=== PATIENT | male | born 1940 | race Caucasian/White ===

== ENCOUNTER 2016-11-04 09:10 | Outpatient (CLI) | payer MEDICARE, OTHER | END 2016-11-04 09:11 | disposition home or self-care (01) | DX: E11.65 Type 2 diabetes mellitus with hyperglycemia (principal); N40.1 Benign prostatic hyperplasia with lower urinary tract symptoms; N13.8 Other obstructive and reflux uropathy ==

== ENCOUNTER 2017-01-11 09:41 | Outpatient (CLI) | payer MEDICARE, OTHER | END 2017-01-11 09:42 | disposition home or self-care (01) | DX: E11.65 Type 2 diabetes mellitus with hyperglycemia (principal) ==

== ENCOUNTER 2017-04-02 07:09 | Outpatient (CLI) | payer MEDICARE, OTHER ==
[2017-04-02 13:20] LABS: BILIRUBIN,TOTAL 0.7 mg/dL (0.2-1.0); BUN - BLOOD UREA NITROGEN 23 mg/dL (6-20); CALCIUM 9.4 mg/dL (8.5-10.3); CARBON DIOXIDE - CO2 24 mmol/L (21-32); CHLORIDE 103 mmol/L (101-111); CREATININE 1.1 mg/dL (0.6-1.2); GFR - MDRD 65 (>89); GLUCOSE 175 mg/dL (70-100); POTASSIUM 4.2 mmol/L (3.5-5.0); SODIUM 136 mmol/L (135-145); TOTAL PROTEIN 7.6 g/dL (6.7-8.2)
[2017-04-02 13:21] LABS: ALBUMIN/GLOBULIN RATIO 1.1 (1.0-2.2); CHOL/HDL RATIO 4.1 (<5.0); CHOLESTEROL 120 mg/dL; HDL CHOLESTEROL 29 mg/dL; LDL/HDL RATIO 1.6 (<3.6); TRIGLYCERIDES 231 mg/dL; VLDL CHOLESTEROL 46 mg/dL
[2017-04-02 13:32] LABS: HEMOGLOBIN A1C 1.12 g/dL
== END 2017-04-02 07:10 | disposition home or self-care (01) ==
LOC: LAB.WCP 07:09
PROVIDERS: ATTEND Family Medicine
DX: E11.65 Type 2 diabetes mellitus with hyperglycemia (principal)
CPT/HCPCS: 36415; 80053; 80061; 82043; 83036

== ENCOUNTER 2017-07-08 08:00 | Outpatient (CLI) | payer MEDICARE, OTHER ==
[2017-07-08 13:36] LABS: HEMOGLOBIN A1C 1.17 g/dL
[2017-07-08 13:50] LABS: CALCIUM 9.6 mg/dL (8.5-10.3); CREATININE 1.1 mg/dL (0.6-1.2); POTASSIUM 4.7 mmol/L (3.5-5.0); TOTAL PROTEIN 7.8 g/dL (6.7-8.2)
== END 2017-07-08 08:01 | disposition home or self-care (01) ==
LOC: LAB.WCP 08:00
PROVIDERS: ATTEND Family Medicine
DX: I10 Essential (primary) hypertension (principal); E11.65 Type 2 diabetes mellitus with hyperglycemia
CPT/HCPCS: 36415; 80053; 83036

== ENCOUNTER 2017-10-21 07:48 | Outpatient (CLI) | payer MEDICARE, OTHER ==
--- NOTE | 2017-10-21 12:25 | MRI Report ---
EXAM: MRI LUMBAR SPINE WITHOUT CONTRAST EXAM DATE: 10/21/2017 08:32 AM. CLINICAL HISTORY: 76-year-old man with low back pain and right-sided lumbar radiculopathy. COMPARISON: 01/03/2010. TECHNIQUE: Multiplanar, multisequence T1-weighted and fluid-sensitive sequences of the lumbar spine f rom T12 to S1 without contrast. Other: None. FINDINGS: Spinal Cord: The conus terminates at L1-L2. Cauda equina nerve roots are normal in appearance. Alignment: No significant spondylolisthesis. There is minimal convex left scoliosis centered at L4-L5 , similar to the 2010 exam. Bone Marrow: Five [id number] lumbar vertebral bodies are present. No gross fractures or bone les ions. Trace degenerative endplate edema is present at L4-L5. Disk Levels/Facets: T12-L1: Unremarkable. L1-L2: Unremarkable. L2-L3: There is disk desiccation without significant height loss. Small broad-based disk bulge result s in mild narrowing and central canal, progressed. Facet hypertrophy and disk in the subarticular spa danny result in mild narrowing of the neuroforamina bilaterally, not significantly changed. L3-L4: Disk height and signal are relatively preserved. Mild facet hypertrophy and prominent dorsal e pidural fat results in minimal narrowing of the central canal, not significantly changed. Facet hyper trophy results in mild to moderate narrowing of the neural foramina bilaterally, stable or slightly p rogressed on the left. L4-L5: There is mild disk height loss. Mild edema is present within the disk space. Right paracentral disk extrusion is present, decreased in size compared to 2010 exam, but there is effacement of the r ight lateral recess and likely compression of the passing right L5 nerve roots. The extrusion results in mild narrowing of the central canal overall. Disk osteophyte complex in the subarticular spaces a nd facet hypertrophy results in moderate narrowing of the right neural foramen and mild/moderate narr owing on the left, progressed on the right. L5-S1: There is mild disk desiccation and height loss. Small broad-based disk bulge is present withou t significant narrowing of the central canal. Disk may contact the passing S1 nerve roots, left-sided greater than right, but no definite compression. Facet hypertrophy and disk in the subarticular spac es result in mild to moderate narrowing of the neural foramina bilaterally, unchanged. Musculature: Normal. No edema or fatty atrophy. Other: The partially visualized retroperitoneum is unremarkable. IMPRESSION: 1. Degenerative disk changes, worst at L4-L5 where there is minimal bony endplate edema. 2. Degenerative changes result in the following: - L2-L3: Mild narrowing of the canal, progressed compared to the 01/03/2010 exam. Mild narrowing of t he lateral foramina bilaterally, unchanged. - L3-L4: Mild to moderate narrowing of the neural foramina bilaterally, stable or slightly progressed on the left. - L4-L5: Right paracentral disk extrusion, smaller than on the 2010 exam. This effaces the right late ral recess, likely compressing the passing right L5 nerve root. Mild narrowing of the central canal o verall. Moderate narrowing of the right neural foramen and mild to moderate narrowing on the left, pr ogressed on the right. - L5-S1: Mild to moderate narrowing of the neural foramina bilaterally, unchanged. Comment: The following findings are so common in adults without low back pain that while we report th eir presence, they must be interpreted with caution and in the context of the clinical situation. (Re rick Joy et al, Spine 2001) Prevalence of findings in patients without low back pain: Disk degeneration (any evidence): 92% Disk desiccation/T2 signal loss: 83% Disk height loss: 56% Disk bulge: 64% Disk protrusion: 32% Annular tear/high intensity zone: 38% [facility] Referring Provider Line: [phone] SITE ID: [id number]
== END 2017-10-21 07:49 | disposition home or self-care (01) ==
LOC: DI 07:48
PROVIDERS: ATTEND Family Medicine
DX: M51.26 Other intervertebral disc displacement, lumbar region (principal); M51.36 Other intervertebral disc degeneration, lumbar region; M47.896 Other spondylosis, lumbar region; M51.37 Other intervertebral disc degeneration, lumbosacral region; M47.897 Other spondylosis, lumbosacral region
CPT/HCPCS: 72148

== ENCOUNTER 2017-12-08 09:22 | Outpatient (CLI) | payer MEDICARE, OTHER | END 2017-12-08 09:23 | disposition home or self-care (01) | LOC: SC 09:22 | PROVIDERS: ATTEND Nurse Practitioner Family | DX: G47.33 Obstructive sleep apnea (adult) (pediatric) (principal) | CPT/HCPCS: 99214; G0463; 99212 ==

== ENCOUNTER 2018-04-25 08:21 | Outpatient (CLI) | payer MEDICARE, OTHER | END 2018-04-25 08:22 | disposition home or self-care (01) | LOC: DI 08:21 | PROVIDERS: ATTEND Family Medicine | DX: I35.0 Nonrheumatic aortic (valve) stenosis (principal); I51.9 Heart disease, unspecified; I27.20 Pulmonary hypertension, unspecified | CPT/HCPCS: 93306 ==

== ENCOUNTER 2018-04-28 08:19 | Outpatient (CLI) | payer MEDICARE, OTHER ==
[2018-04-28 13:20] LABS: HB2 TOTAL 14.8 g/dL; HEMOGLOBIN A1C 1.04 g/dL; HEMOGLOBIN A1C % 8.6 % (4.6-6.2)
[2018-04-28 13:24] LABS: ALBUMIN 3.8 g/dL (3.2-5.5); ALKALINE PHOSPHATASE 74 IU/L (42-121); ALT ALANINE AMINOTRANSFERASE 37 IU/L (10-60); AST ASPARTATE AMINOTRANSFERASE 35 IU/L (10-42); BILIRUBIN,TOTAL 0.6 mg/dL (0.2-1.0); BUN - BLOOD UREA NITROGEN 24 mg/dL (6-20); CALCIUM 9.1 mg/dL (8.5-10.3); CARBON DIOXIDE - CO2 22 mmol/L (21-32); CHLORIDE 104 mmol/L (101-111); CHOL/HDL RATIO 3.7 (<5.0); CHOLESTEROL 110 mg/dL; CREATININE 1.2 mg/dL (0.6-1.2); GFR - MDRD 59 (>89); GLUCOSE 206 mg/dL (70-100); HDL CHOLESTEROL 30 mg/dL; LDL CHOLESTEROL,CALCULATED 38 mg/dL; LDL/HDL RATIO 1.3 (<3.6); SODIUM 134 mmol/L (135-145); TOTAL PROTEIN 7.6 g/dL (6.7-8.2); VLDL CHOLESTEROL 42 mg/dL
== END 2018-04-28 08:20 ==
LOC: LAB.WCP 08:19
PROVIDERS: ATTEND Family Medicine
DX: E11.9 Type 2 diabetes mellitus without complications (principal)
CPT/HCPCS: 36415; 80053; 80061; 83036; 83721

== ENCOUNTER 2018-06-16 07:14 | Outpatient (CLI) | payer MEDICARE, OTHER | END 2018-06-16 07:15 | disposition home or self-care (01) | LOC: RT 07:14 | PROVIDERS: ATTEND Internal Medicine Cardiovascular Disease | DX: I35.0 Nonrheumatic aortic (valve) stenosis (principal) | CPT/HCPCS: 93005 ==

== ENCOUNTER 2019-02-14 08:00 | Outpatient (CLI) | payer MEDICARE, OTHER | END 2019-02-14 23:59 | disposition home or self-care (01) | LOC: LAB.WCP 08:00 | PROVIDERS: ATTEND Nurse Practitioner | DX: E11.65 Type 2 diabetes mellitus with hyperglycemia (principal); Z79.4 Long term (current) use of insulin | CPT/HCPCS: 36415; 80048 ==

== ENCOUNTER 2019-05-09 08:00 | Outpatient (CLI) | payer MEDICARE, OTHER ==
[2019-05-09 18:58] LABS: BASOPHILS # (AUTO) 0.1 10^3/uL (0.0-0.1); BASOPHILS % (AUTO) 1.3 %; EOSINOPHILS # (AUTO) 0.2 10^3/uL (0.0-0.7); EOSINOPHILS % (AUTO) 2.6 %; HGB - HEMOGLOBIN 13.6 g/dL (14.0-18.0); LYMPHOCYTES # (AUTO) 2.3 10^3/uL (1.5-3.5); LYMPHOCYTES % (AUTO) 32.5 %; MEAN CORPUSCULAR HEMOGLOBIN 27.5 pg (27.0-31.0); MEAN CORPUSCULAR HGB CONC 30.9 g/dL (32.0-36.0); MEAN CORPUSCULAR VOLUME 88.9 fL (80.0-94.0); MEAN PLATELET VOLUME 11.1 fL (7.4-11.4); MONOCYTES # (AUTO) 0.8 10^3/uL (0.0-1.0); MONOCYTES % (AUTO) 11.3 %; NEUTROPHILS # (AUTO) 3.7 10^3/uL (1.5-6.6); NEUTROPHILS % (AUTO) 51.7 %; PLT - PLATELET COUNT 188 10^3/uL (130-450); RED BLOOD COUNT 4.95 10^6/uL (4.70-6.10); RED CELL DISTRIBUTION WIDTH 13.9 % (12.0-15.0); WHITE BLOOD COUNT 7.2 x10^3/uL (4.8-10.8)
[2019-05-09 19:01] LABS: INR 1.1 (0.8-1.2); PT - PROTHROMBIN TIME 11.9 secs (9.9-12.6)
[2019-05-09 19:20] LABS: BILIRUBIN,TOTAL 0.8 mg/dL (0.2-1.0); CALCIUM 9.4 mg/dL (8.5-10.3); CREATININE 1.3 mg/dL (0.6-1.2)
== END 2019-05-09 08:01 | disposition home or self-care (01) ==
LOC: LAB.WCP 08:00
PROVIDERS: ATTEND Family Medicine
DX: D69.2 Other nonthrombocytopenic purpura (principal)
CPT/HCPCS: 36415; 80053; 85025; 85610

== ENCOUNTER 2019-05-12 07:31 | Outpatient (CLI) | payer MEDICARE, OTHER | END 2019-05-12 07:32 | disposition home or self-care (01) | LOC: DI 07:31 | PROVIDERS: ATTEND Family Medicine | DX: I35.0 Nonrheumatic aortic (valve) stenosis (principal); I35.1 Nonrheumatic aortic (valve) insufficiency | CPT/HCPCS: 93306 ==

== ENCOUNTER 2019-06-08 08:43 | Outpatient (CLI) | payer MEDICARE, OTHER ==
[2019-06-08 09:41] VITALS: BP 128/70
--- NOTE | 2019-06-08 09:41 | SLEEP CARE CONSULTATION ---
Information from patient questionnaire entered by Ruth King. I have reviewed and concur with the information entered by Ruth King. This document represents the service I personally performed and the decisions made by me, Sindy Morejon, RN, MSN, GEM EXPERT. History of Present Illness Previous diagnosis: Moderate, Obstructive Sleep Apnea-Hypopnea Syndrome AHI: 25.2 Reason for CPAP/BiPAP follow up: annual Equipment type: CPAP Equipment obtained from: [facility] Mask style: Nasal Mask brand: Respironics Backup mask available: Yes Last cushion change: a couple of months HPI additional information: Back pain resolved with chiropractic treatment. CPAP Compliance Data - Data Reviewed with Patient Average duration of nightly device use: 6.5 Compliance rate %: 95.6 (180 days) Current pressure setting (cmH2O): 8-13 Humidity settin Heated hose settin Average residual AHI: 2.5 Average large leak: 2 secs Subjective Patient concerns: denies: aerophagia, mask discomfort, air blowing in eyes, mask leak noise, condensation in mask/hose, nasal congestion, dry mouth, nose, throat, epistaxis Observed to snore while using device: No On therapy, patient: reports: sleeping better, awakening more refreshed, being more awake and alert during the day, more rested overall. denies: drowsiness while driving Initial [place] Sleepiness Scale score: 9 Current [place] Sleepiness Scale score: 7 Allergies and Home Medications Allergy and home medication list: Losartan Potassium 100mg tablet, 1 po bid Multivitamins 1 po qd Felodipine ER 24h 10mg tablet, 1 po qd Zocor 20mg tablet, 1 po qhs Gemfibrozil 600mg tablet, 1 po bid Lantus Solostar pen injector 100unit/ml subcutaneous solution, inject 55 units of insulin qd Flomax 0.4mg capsule, 1 po qpm Novalog Flexpen pen injector 100unit/ml subcutaneous solution (insulin aspart) 25 unitls before breakfast, 26 units to lunch, 27 units before dinner Fluticasone Propionate 50mcg/act nasal suspension, 1 spray each nostril bid Ibuprofen 600mg tablet, 1 po ac tid PRN pain Tizanidine HCL 2mg tablet, 1-2 po qhs Victoza pen injector ( 18mg/3ml subcutaneous solution Liraglutide), inject 1.8 mg qd * Just had consultation with publications writer and new medications that has not picked up yet. - a new monitoring system Review of Systems Review of systems same as previous: No Physical Exam Blood Pressure: 128/70 Cuff size: long Heart Rate: 65 O2 Saturation: 96 Height: 5 ft 10 in Weight (kg): 127.55 kg Body Mass Index: 40.3 BMI Classification: Class 3 Impression and Plan 1. Obstructive Sleep Apnea-Hypopnea Syndrome, moderate, with excellent treatment compliance and good apnea control. On CPAP therapy, the patient has better sleep quality and is more rested overall. He is advised if starts having nasal / oral dryness symptoms to start humidity use at low setting to prevent epitaxis and oral dental conditions. I gave him a copy of CPAP supply replacement schedule for reference. Currently no problems in getting supplies. He is cleaning equipment regularly. Patient's apnea severity and rationale for treatment to reduce apnea, improve sleep quality and reduce cardiovascular and cerebrovascular events was reviewed. I also reviewed the benefit of consistent device use of CPAP for diabetes. He was also advised how weight loss will assist his diabetes control. He reports that he has worked with mobile paint specialist in past with no benefit. I explained how significant weight loss can reduce his CPAP pressure requirements. His autoCPAP pressure should accomodate some weight loss and symptoms to report for pressure adjustment discusssed. He was advised to discuss diet consultation with his publications writer as he has not had a good experience in past. . * Continue autoPAP pressure at 8-13 cmH2O * Discuss diet consultation with his publications writer. * Notify me if snoring with mask or feeling that the pressure is too much or too little * Attempt to lose weight * Return for follow up in 1 year, or sooner if concerns arise I spent 100% of this 28 minute visit face to face with the patient with greater than 50% of this was spent time counseling the patient and coordination of care.
== END 2019-06-08 08:44 | disposition home or self-care (01) ==
LOC: SC 08:43
PROVIDERS: ATTEND Nurse Practitioner Family
DX: G47.33 Obstructive sleep apnea (adult) (pediatric) (principal)
CPT/HCPCS: 99214; G0463; 99212

== ENCOUNTER 2020-04-02 15:43 | Outpatient (CLI) | payer MEDICARE, OTHER ==
[2020-04-02 18:14] LABS: BASOPHILS # (AUTO) 0.1 10^3/uL (0.0-0.1); BASOPHILS % (AUTO) 1.7 %; EOSINOPHILS # (AUTO) 0.3 10^3/uL (0.0-0.7); EOSINOPHILS % (AUTO) 4.3 %; HGB - HEMOGLOBIN 14.4 g/dL (14.0-18.0); LYMPHOCYTES # (AUTO) 2.1 10^3/uL (1.5-3.5); LYMPHOCYTES % (AUTO) 35.2 %; MEAN CORPUSCULAR HEMOGLOBIN 27.6 pg (27.0-31.0); MEAN CORPUSCULAR HGB CONC 31.6 g/dL (32.0-36.0); MEAN CORPUSCULAR VOLUME 87.2 fL (80.0-94.0); MEAN PLATELET VOLUME 10.5 fL (7.4-11.4); MONOCYTES # (AUTO) 0.7 10^3/uL (0.0-1.0); MONOCYTES % (AUTO) 11.4 %; NEUTROPHILS # (AUTO) 2.8 10^3/uL (1.5-6.6); NEUTROPHILS % (AUTO) 46.2 %; PLT - PLATELET COUNT 178 10^3/uL (130-450); RED BLOOD COUNT 5.22 10^6/uL (4.70-6.10); RED CELL DISTRIBUTION WIDTH 13.9 % (12.0-15.0)
[2020-04-02 18:31] LABS: ALBUMIN/GLOBULIN RATIO 1.1 (1.0-2.2); ALKALINE PHOSPHATASE 69 IU/L (42-121); ALT ALANINE AMINOTRANSFERASE 52 IU/L (10-60); AST ASPARTATE AMINOTRANSFERASE 43 IU/L (10-42); BILIRUBIN,TOTAL 0.3 mg/dL (0.2-1.0); BUN - BLOOD UREA NITROGEN 22 mg/dL (6-20); CALCIUM 9.1 mg/dL (8.5-10.3); CARBON DIOXIDE - CO2 26 mmol/L (21-32); CHLORIDE 102 mmol/L (101-111); CHOL/HDL RATIO 4.8 (<5.0); CHOLESTEROL 167 mg/dL; CREATININE 1.3 mg/dL (0.6-1.2); GLUCOSE 178 mg/dL (70-100); HB2 TOTAL 14.8 g/dL; HDL CHOLESTEROL 35 mg/dL; HEMOGLOBIN A1C 1.41 g/dL; HEMOGLOBIN A1C % 10.9 % (4.6-6.2); LDL CHOLESTEROL,CALCULATED 81 mg/dL; LDL/HDL RATIO 2.3 (<3.6); SODIUM 138 mmol/L (135-145); TOTAL PROTEIN 7.5 g/dL (6.7-8.2); VLDL CHOLESTEROL 51 mg/dL
[2020-04-02 18:33] LABS: MICROALBUM/CREATININE RATIO,UR 3.1 ug/mg (<30.0); MICROALBUMIN,URINE 0.2 mg/dL (0-300.0)
== END 2020-04-02 23:59 | disposition home or self-care (01) ==
LOC: LAB.WCP 15:43
PROVIDERS: ATTEND Family Medicine
DX: E11.65 Type 2 diabetes mellitus with hyperglycemia (principal)
CPT/HCPCS: 36415; 80053; 80061; 82043; 82570; 83036; 83721; 85025

== ENCOUNTER 2020-04-09 07:48 | Outpatient (CLI) | payer MEDICARE, OTHER | END 2020-04-09 07:49 | disposition home or self-care (01) | LOC: DI 07:48 | PROVIDERS: ATTEND Family Medicine | DX: I35.0 Nonrheumatic aortic (valve) stenosis (principal); I27.20 Pulmonary hypertension, unspecified | CPT/HCPCS: 93306 ==

== ENCOUNTER 2020-08-07 13:16 | Outpatient (CLI) | payer MEDICARE, OTHER ==
[2020-08-07 14:07] VITALS: BP 130/60
--- NOTE | 2020-08-07 14:07 | SLEEP CARE CONSULTATION ---
Information from patient questionnaire entered by Ruth King. I have reviewed and concur with the information entered by Ruth King. This document represents the service I personally performed and the decisions made by me, Sindy Morejon, RN, MSN, COTTON CONVERTER. History of Present Illness Service Date and Time: 08/07/2020 1316 Previous diagnosis: Moderate, Obstructive Sleep Apnea-Hypopnea Syndrome AHI: 25.2 (in 2016)(67.3 in 2009) Reason for follow up: annual (Last seen 2019) Equipment type: CPAP Equipment obtained from: [facility] (stopped dispensing supplies) Mask style: Nasal Backup mask available: Yes (old mask) Last cushion change: 2 months ago Prior sleep studies: Yes Year and Where: 2009 and 2015 - [facility] Type of Sleep Study: Polysomnography CPAP Compliance Data - Data Reviewed with Patient Average duration of nightly device use: 6.5 Compliance rate %: 100 (180 days) Current pressure setting (cmH2O): 8-13 Humidity settin Heated hose settin Average residual AHI: 2.7 Average large leak: 14 sec Subjective Patient concerns: denies: aerophagia, mask discomfort, air blowing in eyes, mask leak noise, condensation in mask/hose, nasal congestion, dry mouth, nose, throat, epistaxis, other Observed to snore while using device: No Current pressure setting perceived as: comfortable On therapy, patient: reports: sleeping better, awakening more refreshed, being more awake and alert during the day, more rested overall. denies: drowsiness while driving Initial [place] Sleepiness Scale score: 9 (in 2009) Current [place] Sleepiness Scale score: 7 Allergies and Home Medications Known drug allergies: No Home medication list reviewed: No (no changes ) Review of Systems Review of systems same as previous: Yes Physical Exam Blood Pressure: 130/60 Cuff size: long Heart Rate: 52 O2 Saturation: 98 Height: 5 ft 10 in Weight: 285 lb Weight change since last visit: gained 8 pounds Body Mass Index: 40.8 BMI Classification: Morbidly Obese Impression and Plan 1. Obstructive Sleep Apnea-Hypopnea Syndrome, moderate , with excellent treatment compliance and good apnea control. On CPAP therapy, the patient has better sleep quality and is more rested overall. For patient supply concerns. Patient was notified that another DME can be used. I will have my global marketing coordinator inform of DME options. A [facility] prescription was made. Patient advised to contact this office if further supply problems. Patient has gained weight. Currently patients BMI is 40.3 obesity class . Obesity increases the risk of apnea, CPAP pressure requirements and overall health risks especially cardiovascular and diabetes. Thus patient is advised to lose weight. Weight lo ss can be done with reducing portion size, reducing refined foods and balancing content with vegetables, fruit and protein. In addition tracking food intake will allow awareness of how to modify diet to achieve weight loss goals. Also eating more slowly will allow more awareness of food intake and enjoyment of food while assisting patient to modify intake at each meal. A diet consultation can be helpful in achieving optimal weight loss goals. Patient encouraged to discuss their weight loss goals with their PCP and consider a referral to a bandsaw operator. The patient's CPAP pressure range should accommodate some weight loss. Symptoms to report for additional pressure adjustment discussed. Patient's apnea severity and rationale for treatment to reduce apnea, improve sleep quality and reduce cardiovascular and cerebrovascular events was reviewed. I also reviewed the benefit of consistent device use of CPAP for hypertension. Since patient has more severe apnea in supine position, patient advised to avoid supine sleep with pillow positioning if unable to use CPAP while ill or if without electricity to reduce apnea risk. * Continue auto CPAP pressure at 8-13 cmH2O * Transfer to new DME * Notify me if snoring with mask or feeling that the pressure is too much or too little * Attempt to lose weight * Call this office if any problems using CPAP * Return for follow up in 1 year , or sooner if concerns arise Counseling Topics: Weight loss health impact, Discuss weight with PCP Visit Type: In Office Time Spent with Patient (minutes): 25 Provider Statement: I spent 100% of the Face to Face Visit with the patient with greater than 50% spent counseling the patient and coordination of care.
== END 2020-08-07 13:17 | disposition home or self-care (01) ==
LOC: SC 13:16
PROVIDERS: ATTEND Nurse Practitioner Family
DX: G47.33 Obstructive sleep apnea (adult) (pediatric) (principal); E66.01 Morbid (severe) obesity due to excess calories; Z68.41 Body mass index [BMI] 40.0-44.9, adult
CPT/HCPCS: 99214; G0463; 99212

== ENCOUNTER 2020-08-09 17:30 | Outpatient (CLI) | payer SELFPAY | END 2020-08-09 23:59 | disposition home or self-care (01) | LOC: COV 17:30 | PROVIDERS: ATTEND Family Medicine | DX: Z20.828 Contact with and (suspected) exposure to other viral communicable diseases (principal) ==

== ENCOUNTER 2020-09-12 08:00 | Outpatient (CLI) | payer MEDICARE, OTHER | END 2020-09-12 23:59 | disposition home or self-care (01) | LOC: LAB.R 08:00 | PROVIDERS: ATTEND Emergency Medicine | DX: J06.9 Acute upper respiratory infection, unspecified (principal); Z20.828 Contact with and (suspected) exposure to other viral communicable diseases; E11.65 Type 2 diabetes mellitus with hyperglycemia | CPT/HCPCS: 82962; 87275; 87276; U0004 ==

== ENCOUNTER 2020-09-12 14:20 | Outpatient (CLI) | payer MEDICARE, OTHER ==
--- NOTE | 2020-09-12 14:22 | XRAY Report ---
PROCEDURE: Chest 2 View X-Ray INDICATIONS: UPPER RESPITORY INFECTION TECHNIQUE: 2 view(s) of the chest. COMPARISON: None. FINDINGS: Surgical changes and devices: None. Lungs and pleura: Diffuse interstitial prominence. No focal consolidation. No pneumothorax or pleural effusion Mediastinum: Mediastinal contours are normal. Heart size is normal. Bones and chest wall: No suspicious bony abnormalities. Soft tissues appear unremarkable. IMPRESSION: Diffuse interstitial prominence without focal consolidation. Findings may represent an i nfectious/inflammatory process although pulmonary edema may have a similar appearance if clinically a ppropriate. Reviewed by: Anton Adams MD on 09/12/2020 2:21 PM PST Approved by: Anton Adams MD on 09/12/2020 2:21 PM PST Station ID: [id number]
== END 2020-09-12 23:59 | disposition home or self-care (01) ==
LOC: DI.N 14:20
PROVIDERS: ATTEND Emergency Medicine
DX: J06.9 Acute upper respiratory infection, unspecified (principal)

== ENCOUNTER 2020-09-15 15:20 | Emergency (ER) | payer MEDICARE, OTHER ==
--- NOTE | 2020-09-15 15:35 | ED Physician Documentation ---
PD HPI URI - Stated complaint Stated Complaint: CHILLS,SOA,FEVER,CHEST HEAVY - Chief complaint Chief Complaint: Resp - History obtained from History obtained from: Patient - History of Present Illness Timing - onset: How many days ago (5-6) Timing duration: Days (5-6) Timing details: Gradual onset (initially congestion and sinus pressure. Then with some cough that has persisted. Having tightness in chest the past 3 days, worsening. Has not improved with Zpack meds for 3 days.), Still present Associated symptoms: Chills, Nasal congestion, Rhinorrhea, Dry cough, Chest pain (tightness and is also with some pain on cough now.). No: Fever, Sore throat Contributing factors: No: Sick contact Similar symptoms before: Has not had sx before Recently seen: Clinic (walk in 3 days ago and Rx Zpack after CXR showing interstitial diffuse changes, and COVID/Flu testing negative. Having increased tightness in chest.) Review of Systems Constitutional: reports: Chills, Myalgias. denies: Fever Nose: reports: Rhinorrhea / runny nose, Congestion, Sinus pressure / pain Throat: denies: Sore throat Cardiac: reports: Chest pain / pressure (tightness and dyspnea with activity.). denies: Palpitations, Pedal edema, Calf pain Respiratory: reports: Dyspnea, Cough. denies: Wheezing GI: denies: Nausea, Vomiting, Diarrhea Skin: denies: Rash Neurologic: reports: Generalized weakness. denies: Altered mental status, Headache PD PAST MEDICAL HISTORY - Past Medical History Cardiovascular: Hypertension, High cholesterol, Murmur Respiratory: COPD, Sleep apnea Endocrine/Autoimmune: Type 2 diabetes GI: Chronic diarrhea : Benign prostate hypertrophy - Past Surgical History General: Appendectomy Ortho: Carpal Tunnel surgery HEENT: Tonsil/Adenoidectomy - Present Medications Home Medications: Ambulatory Orders Medication Instructions Recorded Confirmed Felodipine [Plendil] 10 mg PO DAILY 07/26/14 01/20/17 Loperamide [Imodium] 2 mg PO QID PRN #10 capsule 07/26/14 01/20/17 Losartan [Cozaar] 100 mg PO BID 07/26/14 01/20/17 Metformin HCl 500 mg PO BID 07/26/14 01/20/17 Simvastatin 20 mg PO QPM 07/26/14 01/20/17 Aspirin 81 mg PO DAILY 01/20/17 01/20/17 Insulin Aspart [Novolog Flexpen] 25 unit SQ TIDWM 01/20/17 01/20/17 Insulin Glargine [Lantus Solostar] 55 units SQ DAILY 01/20/17 01/20/17 Tamsulosin [Flomax] 0.4 mg PO DAILY 01/20/17 01/20/17 Exenatide Microspheres [Bydureon 2 mg SQ OAW 04/20/19 04/20/19 Pen] Ibuprofen 600 mg PO TIDWM 04/20/19 04/20/19 Oxybutynin Chloride 5 mg PO BID 04/20/19 04/20/19 Tizanidine HCl [Zanaflex] 2 tab PO DAILY 04/20/19 04/20/19 Albuterol Sulf [Ventolin Hfa 3 - 4 puffs INH Q4HR PRN #1 inhaler 09/15/20 Inhaler] Cephalexin [Keflex] 500 mg PO Q6H #28 capsule 09/15/20 dexAMETHasone [Decadron] 4 mg PO DAILY #7 tablet 09/15/20 - Allergies Allergies/Adverse Reactions: Allergies Allergy/AdvReac Type Severity Reaction Status Date / Time No Known Drug Allergies Allergy Verified 09/15/20 15:23 - Social History Does the pt smoke?: No Smoking Status: Former smoker Does the pt drink ETOH?: Yes Does the pt have substance abuse?: No - Immunizations Immunizations are current?: Yes - POLST Patient has POLST: No PD ED PE NORMAL - Vitals Vital signs reviewed: Yes - General General: Alert and oriented X 3, No acute distress, Well developed/nourished - HEENT HEENT: Ears normal, Moist mucous membranes, Pharynx benign - Neck Neck: Supple, no meningeal sign, No adenopathy, No JVD - Cardiac Cardiac: RRR (bradycardic without murmur), No murmur - Respiratory Respiratory: No: Clear bilaterally (fine crackles diffusely and mid to end expiratory wheezing diffuse. No coarse sounds. ) - Abdomen Abdomen: Soft, Non tender - Derm Derm: Normal color, Warm and dry - Extremities Extremities: No edema, No calf tenderness / cord - Neuro Neuro: Alert and oriented X 3, No motor deficit, Normal speech Results - Vitals Vitals: Vital Signs - 24 hr 09/15/20 09/15/20 09/15/20 15:23 16:06 16:28 Temperature 36.8 C Heart Rate 55 L 52 L 54 L Respiratory 24 19 14 Rate Blood Pressure 142/58 H 121/61 O2 Saturation 99 98 09/15/20 17:06 Temperature 36.8 C Heart Rate 55 L Respiratory 18 Rate Blood Pressure 112/53 L O2 Saturation 99 Oxygen O2 Source Room air - Labs Labs: Laboratory Tests 09/15/20 09/15/20 09/15/20 16:07 16:07 16:07 WBC 5.7 RBC 4.84 Hgb 13.0 L Hct 41.0 L MCV 84.7 MCH 26.9 L MCHC 31.7 L RDW 14.2 Plt Count 163 MPV 9.7 Neut # (Auto) 2.6 Lymph # (Auto) 2.1 Beckham # (Auto) 0.6 Eos # (Auto) 0.2 Baso # (Auto) 0.1 Absolute Nucleated RBC 0.00 Nucleated RBC % 0.0 Sodium 141 Potassium 4.3 Chloride 104 Carbon Dioxide 24 Anion Gap 13.0 BUN 19 Creatinine 1.7 H Estimated GFR (MDRD) 39 L Glucose 190 H Calcium 8.9 Troponin I High Sens 5.8 B-Natriuretic Peptide 09/15/20 16:07 WBC RBC Hgb Hct MCV MCH MCHC RDW Plt Count MPV Neut # (Auto) Lymph # (Auto) Beckham # (Auto) Eos # (Auto) Baso # (Auto) Absolute Nucleated RBC Nucleated RBC % Sodium Potassium Chloride Carbon Dioxide Anion Gap BUN Creatinine Estimated GFR (MDRD) Glucose Calcium Troponin I High Sens B-Natriuretic Peptide 46 - Rads (name of study) chest xray Radiology: Prelim report reviewed (diffuse interstitial changes c/w viral pneumonitis or CHF. ), See rad report PD MEDICAL DECISION MAKING - ED course Complexity details: reviewed old records, reviewed results, considered differential (he improved tightness feeling in chest with nebulizer. CXR still showing interstitial fluffiness but his BNP is low and no edema/etc, so does not seem CHF. Presume viral or atypical pneumonia. Recent COVID was negative. ), d/w patient Departure - Departure Disposition: 01 Home, Self Care Clinical Impression: Pneumonia Qualifiers: Pneumonia type: due to unspecified organism Laterality: bilateral Lung location: unspecified part of lung Qualified Code(s): J18.9 - Pneumonia, unspecified organism Dyspnea Qualifiers: Dyspnea type: dyspnea on exertion Qualified Code(s): R06.00 - Dyspnea, unspecified Condition: Stable Record reviewed to determine appropriate education?: Yes Instructions: ED Pneumonia Adult Follow-Up: Elise Contreras DO [Primary Care Provider] - Prescriptions: Albuterol Sulf [Ventolin Hfa Inhaler] 3 - 4 puffs INH Q4HR PRN #1 inhaler PRN Reason: Shortness Of Air/Wheezing dexAMETHasone [Decadron] 4 mg PO DAILY #7 tablet Cephalexin [Keflex] 500 mg PO Q6H #28 capsule Comments: Your chest x-ray looks similar to the other day. There is little bit of infection appearance diffusely through both lungs. This may represent a viral illness. However we can try a different antibiotic and see if that works better. I would use this in conjunction with an anti-inflammatory and an inhaler as these will benefit your breathing regardless of the type of germ. We did do test to look for signs of heart failure or heart attack and those were both negative. Use the inhaler 3 to 4 puffs 4 times a day for the next 7 to 10 days and extra times if needed for tightness or wheezing. Decadron steroid daily for the next week as well. Stop the current antibiotic a azithromycin and change to cephalexin 4 times a day for a week. Recheck if not improved well over the next few days and return if worsening. Discharge Date/Time: 09/15/20 17:13
[2020-09-15] MEDS: DEXAMETHASONE 10 MG/ML VIAL PO STA (16:04)
[2020-09-15] MEDS: CHERRY SYRUP 10 ML UDC PO ONE (16:04)
[2020-09-15] MEDS: ALBUTEROL NEB 2.5 MG/3 ML INH STA (16:15)
[2020-09-15 16:18] LABS: BASOPHILS # (AUTO) 0.1 10^3/uL (0.0-0.1); BASOPHILS % (AUTO) 1.6 %; EOSINOPHILS # (AUTO) 0.2 10^3/uL (0.0-0.7); LYMPHOCYTES # (AUTO) 2.1 10^3/uL (1.5-3.5); LYMPHOCYTES % (AUTO) 36.2 %; MEAN CORPUSCULAR HEMOGLOBIN 26.9 pg (27.0-31.0); MEAN CORPUSCULAR HGB CONC 31.7 g/dL (32.0-36.0); MEAN CORPUSCULAR VOLUME 84.7 fL (80.0-94.0); MEAN PLATELET VOLUME 9.7 fL (7.4-11.4); MONOCYTES # (AUTO) 0.6 10^3/uL (0.0-1.0); MONOCYTES % (AUTO) 10.8 %; NEUTROPHILS # (AUTO) 2.6 10^3/uL (1.5-6.6); NEUTROPHILS % (AUTO) 46.2 %; PLT - PLATELET COUNT 163 10^3/uL (130-450); RED BLOOD COUNT 4.84 10^6/uL (4.70-6.10); RED CELL DISTRIBUTION WIDTH 14.2 % (12.0-15.0); WHITE BLOOD COUNT 5.7 x10^3/uL (4.8-10.8)
[2020-09-15 16:30] LABS: CALCIUM 8.9 mg/dL (8.5-10.3); CREATININE 1.7 mg/dL (0.6-1.2)
[2020-09-15] MEDS: cefTRIAXone 1 GM VIAL IM STA (16:42)
[2020-09-15] MEDS: LIDOCAINE 1% 2 ML VIAL MC ONE (16:43)
--- NOTE | 2020-09-15 16:44 | XRAY Report ---
PROCEDURE: Chest 1 View X-Ray INDICATIONS: chest pain TECHNIQUE: One view of the chest was acquired. COMPARISON: 09/12/2020 FINDINGS: Surgical changes and devices: None. Lungs and pleura: Generalized interstitial prominence can be seen.Lung volumes are low. On this semiu pright study, no large pneumothorax or large pleural effusion can be seen. The right inferior costoph renic angle is not included within the [id number] of this study. Mediastinum: The aorta is prominent and tortuous. The cardiac contours are at the upper limits of no rmal. Bones and chest wall: No suspicious bony lesions. Age-appropriate degenerative changes are seen. O verlying soft tissues appear unremarkable. IMPRESSION: Generalized soft tissue prominence can be seen. Differential diagnosis includes viral pneumonia and p ulmonary edema. Reviewed by: Chadd Reza MD on 09/15/2020 3:43 PM AKST Approved by: Chadd Reza MD on 09/15/2020 3:43 PM AKST Station ID: [id number]
[2020-09-15 17:06] VITALS: BP 112/53
== END 2020-09-15 17:13 | disposition home or self-care (01) ==
LOC: ED 15:20
DX: J18.9 Pneumonia, unspecified organism (principal); R06.00 Dyspnea, unspecified; I10 Essential (primary) hypertension; E11.9 Type 2 diabetes mellitus without complications; Z79.4 Long term (current) use of insulin; Z87.891 Personal history of nicotine dependence
CPT/HCPCS: 36415; 71045; 80048; 83880; 84484; 85025; 94640; 96372; 99284; A9270

== ENCOUNTER 2020-10-02 08:00 | Outpatient (CLI) | payer MEDICARE, OTHER ==
[2020-10-02 17:46] LABS: BASOPHILS # (AUTO) 0.1 10^3/uL (0.0-0.1); BASOPHILS % (AUTO) 1.2 %; EOSINOPHILS # (AUTO) 0.2 10^3/uL (0.0-0.7); EOSINOPHILS % (AUTO) 2.4 %; HGB - HEMOGLOBIN 13.6 g/dL (14.0-18.0); LYMPHOCYTES # (AUTO) 1.8 10^3/uL (1.5-3.5); LYMPHOCYTES % (AUTO) 23.4 %; MEAN CORPUSCULAR HEMOGLOBIN 27.1 pg (27.0-31.0); MEAN CORPUSCULAR HGB CONC 31.1 g/dL (32.0-36.0); MEAN CORPUSCULAR VOLUME 87.2 fL (80.0-94.0); MONOCYTES # (AUTO) 0.8 10^3/uL (0.0-1.0); MONOCYTES % (AUTO) 9.8 %; NEUTROPHILS # (AUTO) 4.9 10^3/uL (1.5-6.6); NEUTROPHILS % (AUTO) 62.7 %; PLT - PLATELET COUNT 226 10^3/uL (130-450); RED BLOOD COUNT 5.01 10^6/uL (4.70-6.10); RED CELL DISTRIBUTION WIDTH 14.7 % (12.0-15.0); WHITE BLOOD COUNT 7.8 x10^3/uL (4.8-10.8)
[2020-10-02 18:02] LABS: ALBUMIN 3.7 g/dL (3.2-5.5); ALKALINE PHOSPHATASE 65 IU/L (42-121); ALT ALANINE AMINOTRANSFERASE 33 IU/L (10-60); AST ASPARTATE AMINOTRANSFERASE 26 IU/L (10-42); BILIRUBIN,TOTAL 0.8 mg/dL (0.2-1.0); BUN - BLOOD UREA NITROGEN 22 mg/dL (6-20); CALCIUM 9.1 mg/dL (8.5-10.3); CARBON DIOXIDE - CO2 24 mmol/L (21-32); CHLORIDE 105 mmol/L (101-111); CHOL/HDL RATIO 3.7 (<5.0); CHOLESTEROL 128 mg/dL; CREATININE 1.4 mg/dL (0.6-1.2); GLUCOSE 229 mg/dL (70-100); HDL CHOLESTEROL 35 mg/dL; LDL CHOLESTEROL,CALCULATED 49 mg/dL; LDL/HDL RATIO 1.4 (<3.6); SODIUM 138 mmol/L (135-145); TOTAL PROTEIN 7.3 g/dL (6.7-8.2); VLDL CHOLESTEROL 44 mg/dL
[2020-10-02 18:16] LABS: CREATININE,URINE 59.9 mg/dL
[2020-10-02 18:17] LABS: MICROALBUMIN,URINE < 0.2 mg/dL (0-300.0)
[2020-10-02 19:58] LABS: HEMOGLOBIN A1c% 9.2 % (4.27-6.07)
== END 2020-10-02 23:59 | disposition home or self-care (01) ==
LOC: LAB.WCP 08:00
PROVIDERS: ATTEND Family Medicine
DX: E11.65 Type 2 diabetes mellitus with hyperglycemia (principal)
CPT/HCPCS: 36415; 80053; 80061; 82043; 82570; 83036; 83721; 85025

== ENCOUNTER 2022-01-01 10:07 | Outpatient (CLI) | payer MEDICARE, OTHER ==
[2022-01-01 10:46] VITALS: BP 135/70
--- NOTE | 2022-01-01 10:46 | SLEEP CARE CONSULTATION ---
Information from patient questionnaire entered by Eldon Berry MA. I have reviewed and concur with the information entered by Eldon Berry MA. This document represents the service I personally performed and the decisions made by , Cherrie Kaufman ARNP. History of Present Illness Service Date and Time: 01/01/2022 1007 Previous diagnosis: Moderate, Obstructive Sleep Apnea-Hypopnea Syndrome AHI: 25.2 (in 2016)(67.3 in 2009) Reason for follow up: annual (LAST SEEN 07/2020,) Equipment type: CPAP Equipment obtained from: [facility] (needs new prescription for supplies) Mask style: Nasal Backup mask available: No (needs supplies) Last cushion change: 3 months ago Prior sleep studies: Yes Year and Where: 2009 and 2015 - [facility] Type of Sleep Study: Polysomnography HPI additional information: [place] OTT was diagnosed to have moderate, AHI 25.2, obstructive sleep apnea- hypopnea syndrome and returned today for CPAP therapy annual follow-up. Sleep Study - Results Type of Sleep Study: Polysomnography Prior sleep studies: Yes Year and Where: 2009 and 2015 - [facility] CPAP Compliance Data - Data Reviewed with Patient Average duration of nightly device use: 6 hours 4 minutes Compliance rate %: 76.1 Current pressure setting (cmH2O): 8-13 Humidity setting: off Heated hose setting: off Average residual AHI: 3.9 Average large leak: 23 seconds Subjective Missed days of use due to: reports: other (recall) Patient concerns: denies: aerophagia, mask discomfort, air blowing in eyes, mask leak noise, condensation in mask/hose, nasal congestion, dry mouth, nose, throat, epistaxis Observed to snore while using device: No Current pressure setting perceived as: comfortable On therapy, patient: reports: sleeping better, awakening more refreshed, being more awake and alert during the day, more rested overall. denies: drowsiness while driving Initial [employer] Sleepiness Scale score: 9 (in 2009) Current [employer] Sleepiness Scale score: 6 (2021) Allergies and Home Medications Known drug allergies: No Drug allergies reviewed: Yes Home medication list reviewed: Yes (no changes) Allergy and home medication list: Allergies No Known Drug Allergies Allergy (Verified 09/15/20 15:23) Review of Systems Review of systems same as previous: Yes (no changes) Physical Exam Vital signs obtained and entered by: LIDIA SNYDER Blood Pressure: 135/70 (right, pulse 74, resp 18,) Cuff size: wrist Heart Rate: 72 O2 Saturation: 97 Height: 5 ft 10 in Weight: 277 lb Weight change since last visit: 12 lb loss Body Mass Index: 39.7 BMI Classification: Obese Impression and Plan 1. Obstructive Sleep Apnea-Hypopnea Syndrome, moderate, with good treatment compliance and good apnea control. On CPAP therapy, the patient has better sleep quality and is more rested overall. Patient has a Dreamstation that was last updated in 2016. Patient has already registered their device for the recall. Patient denies any black particles seen in machine or hoses, any unusual odors coming from device. Patient has not experienced any physical symptoms such as upper airway irritation, headache, skin or eye irritation, asthma, nausea/vomiting, difficulty breathing or chest pain. If patient is not able to sleep due to waking up choking, gasping for air or other respiratory distress that they may decide to continue using it until it is either replaced or repaired. Since the patients current machine is at least 5 years old, the patient is opting to update their device with a device that is not on the recall. A DWO prescription will be made. Compliance guidelines for new device and follow up discussed. Patient voiced understanding and agreement with plan. Patient's apnea severity and rationale for treatment to reduce apnea, improve sleep quality and reduce cardiovascular and cerebrovascular events was reviewed. I also reviewed the benefit of consistent device use of CPAP for hypertension. 2. Obesity, unspecified. Patient has lost weight. Currently patients BMI is 39.7. Obesity increases the risk of apnea, CPAP pressure requirements and overall health risks especially cardiovascular and diabetes. Thus patient is advised to continue to try to lose weight. Weight loss can be done with reducing portion size, reducing refined foods and balancing content with vegetables, fruit and whole grain foods. In addition, patient encouraged to get regular exercise. * Continue auto CPAP pressure at 8-13 cmH2O * Update device * Update supplies as needed * Notify me if snoring with mask or feeling that the pressure is too much or too little * Continue to try to lose weight * Call this office if any problems using CPAP * Return for follow up one month after obtaining new device, or sooner if concerns arise Counseling Topics: Spare mask, Weight loss health impact Visit Type: In Office Time Spent with Patient (minutes): 26 Provider Statement: I spent 100% of the Face to Face Visit with the patient with greater than 50% spent counseling the patient and coordination of care.
== END 2022-01-01 10:08 | disposition home or self-care (01) ==
LOC: SC 10:07
PROVIDERS: ATTEND Nurse Practitioner Family
DX: G47.33 Obstructive sleep apnea (adult) (pediatric) (principal); E66.9 Obesity, unspecified; Z68.39 Body mass index [BMI] 39.0-39.9, adult
CPT/HCPCS: 99213; G0463; 99212

== ENCOUNTER 2022-01-08 11:57 | Outpatient (CLI) | payer MEDICARE, OTHER ==
[2022-01-08 18:23] LABS: BASOPHILS # (AUTO) 0.1 10^3/uL (0.0-0.1); BASOPHILS % (AUTO) 1.7 %; EOSINOPHILS # (AUTO) 0.3 10^3/uL (0.0-0.7); EOSINOPHILS % (AUTO) 3.7 %; HGB - HEMOGLOBIN 14.7 g/dL (14.0-18.0); LYMPHOCYTES # (AUTO) 2.2 10^3/uL (1.5-3.5); LYMPHOCYTES % (AUTO) 31.9 %; MEAN CORPUSCULAR HEMOGLOBIN 26.6 pg (27.0-31.0); MEAN CORPUSCULAR VOLUME 83.3 fL (80.0-94.0); MONOCYTES # (AUTO) 0.7 10^3/uL (0.0-1.0); MONOCYTES % (AUTO) 9.5 %; NEUTROPHILS # (AUTO) 3.7 10^3/uL (1.5-6.6); NEUTROPHILS % (AUTO) 52.5 %; PLT - PLATELET COUNT 172 10^3/uL (130-450); RED BLOOD COUNT 5.52 10^6/uL (4.70-6.10); RED CELL DISTRIBUTION WIDTH 14.8 % (12.0-15.0)
[2022-01-08 19:00] LABS: ALBUMIN 3.9 g/dL (3.2-5.5); ALBUMIN/GLOBULIN RATIO 1.1 (1.0-2.2); ALKALINE PHOSPHATASE 83 IU/L (42-121); ALT ALANINE AMINOTRANSFERASE 45 IU/L (10-60); AST ASPARTATE AMINOTRANSFERASE 42 IU/L (10-42); BILIRUBIN,TOTAL 0.7 mg/dL (0.2-1.0); BUN - BLOOD UREA NITROGEN 21 mg/dL (6-20); CALCIUM 9.1 mg/dL (8.5-10.3); CARBON DIOXIDE - CO2 28 mmol/L (21-32); CHLORIDE 99 mmol/L (101-111); CHOL/HDL RATIO 4.5 (<5.0); CHOLESTEROL 171 mg/dL; CREATININE 1.1 mg/dL (0.6-1.2); GFR - MDRD 64 (>89); GLUCOSE 300 mg/dL (70-100); HDL CHOLESTEROL 38 mg/dL; POTASSIUM 4.3 mmol/L (3.5-5.0); SODIUM 135 mmol/L (135-145); TOTAL PROTEIN 7.4 g/dL (6.7-8.2); TRIGLYCERIDES 438 mg/dL
[2022-01-08 19:08] LABS: THYROID STIMULATING HORMONE 3.22 uIU/mL (0.34-5.60)
[2022-01-08 19:30] LABS: LDL CHOLESTEROL,DIRECT 92 mg/dL; LDLD/HDL RATIO 2.4 (<3.6)
[2022-01-08 20:26] LABS: ESTIMATED AVERAGE GLUCOSE 321 mg/dL (70-100); HEMOGLOBIN A1c% 12.8 % (4.27-6.07)
== END 2022-01-08 11:58 | disposition home or self-care (01) ==
LOC: LAB.N 11:57
PROVIDERS: ATTEND Nurse Practitioner Family
DX: E11.8 Type 2 diabetes mellitus with unspecified complications (principal)
CPT/HCPCS: 36415; 80053; 80061; 81002; 82607; 83036; 83721; 84443; 85025

== ENCOUNTER 2022-08-27 12:32 | Outpatient (CLI) | payer MEDICARE, OTHER | END 2022-08-27 12:33 | disposition home or self-care (01) | LOC: DI 12:32 | PROVIDERS: ATTEND Family Medicine | DX: I08.0 Rheumatic disorders of both mitral and aortic valves (principal); I50.812 Chronic right heart failure | CPT/HCPCS: 93306 ==

== ENCOUNTER 2023-03-30 15:14 | Outpatient (CLI) | payer MEDICARE, OTHER | END 2023-03-30 15:15 | disposition home or self-care (01) | LOC: DI 15:14 | PROVIDERS: ATTEND Internal Medicine Cardiovascular Disease | DX: I08.0 Rheumatic disorders of both mitral and aortic valves (principal) | CPT/HCPCS: 93306 ==

== ENCOUNTER 2024-07-06 10:38 | Outpatient (CLI) | payer MEDICARE, OTHER | END 2024-07-06 10:39 | disposition home or self-care (01) | LOC: DI 10:38 | PROVIDERS: ATTEND Internal Medicine Cardiovascular Disease | DX: I35.0 Nonrheumatic aortic (valve) stenosis (principal) | CPT/HCPCS: 93307 ==